=== PATIENT | male | born 1950 | race Caucasian/White ===

== ENCOUNTER 2016-08-27 11:08 | Emergency (ER) | payer OTHER ==
[2016-08-27 11:12] VITALS: BMI 27.1
--- NOTE | 2016-08-27 11:54 | DR.GENAD ---
HPI - PCP Primary Care Physician: [facility] - Complaint/Symptoms Chief Complaint Doctors Comments: History as stated. Pain left chest for two days, numbness of left arm, pain raidates to back. Zak history of cardiopulmonary disease. Chief Complaint:: Pt is c/o chest pain and numbness to left arm - Source History Provided: Patient - Mode of Arrival Mode of Arrival: Ambulatory - Timing Onset of Chief Complaint: 08/25/16 PMH - PMH Past Medical History: Yes Past Medical History: Hypertension, Hypothyroidism Past Surgical History: Yes Surgical History: Cholecystectomy - Family History History of Family Medical Conditions: Yes Family Medical History: [place], Hypertension - Social History Does patient currently use any type of tobacco product: Yes Have you used tobacco products in the last 12 months: Yes Type of Tobacco Use: Cigarettes Does any household member use tobacco: No Alcohol Use: DAILY Do you use any recreational Drugs:: No Lives With: Spouse Lives Where: Home - infectious screening In the last 2 months have you had wt loss of >10#?: NO Have you had fever, night sweats or hemotysis?: No Have you traveled outside the country in the last 6 months?: No Isolation: Standard ROS - Review of Systems Constitutional: No Symptoms Reported Eyes: No Symptoms Reported ENTM: No Symptoms Reported Respiratoy: No Symptoms Reported Cardiovascular: No Symptoms Reported Gastrointestinal/Abdominal: No Symptoms Reported Genitourinary: No Symptoms Reported Neurological: No Symptoms Reported Musculoskeletal: No Symptoms Reported Integumentary: No Symptoms Reported Hematologic/Lymphatic: No Symptoms Reported Endocrine: No Symptoms Reported Psychiatric: No Symptoms Reported All Other Systems: Reviewed and Negative PE - Vital Signs Vitals: Temperature 97.7 F Pulse Rate 83 Respiratory Rate 18 Blood Pressure 146/73 O2 Sat by Pulse Oximetry 96 - General Limitations: No Limitations General Appearance: Alert, In No Apparent Distress - Head Head Exam: Normal Inspection, Atraumatic - Eyes Eye exam: Normal Appearance, PERRL, EOMI - ENT ENT Exam: Normal Exam External Ear Exam: Normal External Inspection TM/Canal Exam: Bilateral Normal Nose Exam: Normal Nose Exam Mouth Exam: Normal Inspection Throat Exam: Normal Inspection - Neck Neck Exam: Normal Inspection - Chest Chest Inspection: Normal Inspection - Respiratory Respiratory Exam: Normal Lung Sounds Bilat Respiratory Exam: Bilateral Clear to Auscultation - Cardiovascular Cardiovascular Exam: Regular Rate - Abdominal Exam Abdominal Exam: Normal Inspection Abdominal Tenderness: negative: RUQ, RLQ, LUQ, LLQ, Epigastrium, Suprapubic, Diffuse, Mild, Moderate, Severe, Other - Back Back Exam: Normal Inspection - Neurologic Neurological Exam: Alert, Oriented X3, CN II-XII Intact - Psychiatric Psychiatric Exam: Normal Affect - Skin Skin Exam: Warm, Dry, Intact - Discharge Plan Condition: Stable - Follow ups/Referrals Follow ups/Referrals: NFD,None [Primary Care Provider] - 3 days - Instructions
[2016-08-27] MEDS ORDERED: ASPIRIN ONE (11:55)
[2016-08-27] MEDS ORDERED: NS 1000 ML 1,000 ML IV SCH (12:00)
[2016-08-27] MEDS ORDERED: ASPIRIN PO SCH (12:00)
[2016-08-27] MEDS: NITROSTAT SL PRN ×2 (12:05→12:38)
[2016-08-27] MEDS ORDERED: NS 1000 ML 1,000 ML ONE (12:07)
[2016-08-27 12:21] LABS: AMYLASE 63 Units/L (25-115); LIPASE 148 Units/L (73-393)
[2016-08-27 12:29] LABS: BASOPHILS # (AUTO) 0.1 X10^3/uL (0.0-0.1); BASOPHILS % (AUTO) 0.8 % (0.2-1.0); BLOOD UREA NITROGEN 8 mg/dL (7-18); CALCIUM 8.7 mg/dL (8.5-10.1); CARBON DIOXIDE 27.2 mmol/L (21-32); CHLORIDE 101 mmol/L (98-107); CREATININE 0.93 mg/dL (0.70-1.30); EOSINOPHILS # (AUTO) 0.4 x10^3/uL (0.0-0.2); EOSINOPHILS % (AUTO) 5.1 % (0.9-2.9); GLUCOSE 104 mg/dL (65-99); HEMATOCRIT 46.9 % (42.0-54.0); HEMOGLOBIN 15.7 g/dL (13.5-18.0); LYMPHOCYTES # (AUTO) 1.6 X10^3/uL (1.3-2.9); LYMPHOCYTES % (AUTO) 21.4 % (21.0-51.0); MEAN CORPUSCULAR HEMOGLOBIN 31.2 pg (27.0-34.0); MEAN CORPUSCULAR HGB CONC 33.6 g/dL (33.0-35.0); MEAN CORPUSCULAR VOLUME 92.9 fL (80.0-100.0); MONOCYTES # (AUTO) 0.5 x10^3/uL (0.3-0.8); MONOCYTES % (AUTO) 7.1 % (0.0-13.0); NEUTROPHILS % (AUTO) 65.6 % (42.0-75.0); PLATELET COUNT 278 X10^3/uL (150.0-450.0); RED BLOOD COUNT 5.05 X10^6/uL (4.7-6.0); RED CELL DISTRIBUTION WIDTH 14.8 % (11.6-16.5); SODIUM 138 mmol/L (136-145); TROPONIN I < 0.02 ng/mL (0-1.5); WHITE BLOOD COUNT 7.6 X10^3/uL (3.6-10.0); eGFR BLACK RACES > 60 (>60); eGFR NON BLACK RACES > 60 (>60)
[2016-08-27 12:32] LABS: ALANINE AMINOTRANSFERASE 19 Units/L (12-78); ALBUMIN 3.2 g/dL (3.4-5.0); ALKALINE PHOSPHATASE 70 Units/L (46-116); CKMB % 0.8 % (<4); COR CA(FOR HYPOALB) 9.3 mg/dL (8.5-10.1); CREATINE KINASE 155 Units/L (39-308); CREATINE KINASE MB 1.3 ng/mL (0-4.0); MAGNESIUM 1.9 mg/dL (1.7-2.9); PHOSPHORUS 4.2 mg/dL (2.6-4.7); TOTAL PROTEIN 7.5 g/dL (6.4-8.2)
[2016-08-27 12:34] LABS: ASPARTATE AMINO TRANSFERASE 21 Units/L (15-37)
--- NOTE | 2016-08-27 12:48 | RAD ---
HISTORY: CHEST PAIN Study: CHEST ONE VIEW Comparison: None Findings: The trachea is midline. The cardiac silhouette is unremarkable. The lungs are mildly hyperinflated but free of acute infiltrates. No pleural effusions are identified.. The bony thorax is unremarkab le. IMPRESSION: 1. Lungs mildly hyperinflated but clear Reported By:
[2016-08-27 13:07] VITALS: BP 106/58
--- NOTE | 2016-08-27 13:07 | RAD ---
HISTORY: Left arm numbness Study: AP and lateral cervical spine Comparison: None Findings: There is reversal of the normal lordotic curve which could be positional or due to muscle spasm. The alignment is otherwise normal the vertebral bodies are of average height. There is mild disc space narrowing at C4-5. Anterior spondylitic changes present at C4-5 and C5-6. Diffuse bilateral facet de generative joint disease is present. IMPRESSION: Reversal of the normal lordotic curve which could be positional or due to muscle spasm Mild disk space narrowing C4-5 Anterior spondylitic chage C4-5, C5-6 Facet degenerative joint disease Reported By:
== END 2016-08-27 14:15 | disposition home or self-care (01) ==
LOC: ER 11:27
DX: R07.89 Other chest pain (principal); I10 Essential (primary) hypertension; R20.0 Anesthesia of skin; R94.31 Abnormal electrocardiogram [ECG] [EKG]
CPT/HCPCS: 36415; 71010; 72040; 80053; 82150; 82550; 82553; 83690; 83735; 84100; 84484; 85025; 85610; 85730; 93005; 93010; 96365; 96367; 99282; 99283; A4222